=== PATIENT | male | born 1985 | race Caucasian/White ===

== ENCOUNTER 2021-05-09 08:15 | Emergency (ER) | payer MEDICAID ==
[~2021-05-09] VITALS: Ht 168.9 cm; Wt 75.0 kg
[2021-05-09 08:25] VITALS: BP 137/87
--- NOTE | 2021-05-09 08:35 | NUR ---
PT AMB TO BED 4.
--- NOTE | 2021-05-09 08:51 | NUR ---
DR. ARANA AT PT BEDSIDE FOR FURTHER EVALUATION.
[2021-05-09] MEDS ORDERED: FAMOTIDINE 20 MG TAB PO ONE (08:55)
[2021-05-09] MEDS ORDERED: ALUMINUM HYD/MAG/SIMETHICONE 30 ML UDC PO ONE (08:55)
--- NOTE | 2021-05-09 08:59 | NUR ---
35 Y/O MALE C/O ABDOMINAL PAIN 10/15 DESCRIBES ACHING CONSTANT RADIATES TO RUQ ABDOMINAL PAIN X 1DAY. DENIES N/V. DENIES FEVER/CHILLS. ABD IS SOFT, FOUND, NON-TENDER TO PALPATION, BOWEL SOUNDS ACTIVE X4. LAST BM YESTERDAY. PMH: [employer]
[2021-05-09] MEDS ORDERED: FAMO-92 PO (09:09)
[2021-05-09 10:05] VITALS: BP 122/81
--- NOTE | 2021-05-09 10:05 | NUR ---
Patient discharged with v/s stable. Written and verbal after care instructions given FOR ABDOMINAL PAIN, GERD and explained. Patient alert, oriented and verbalized understanding of instructions. Ambulatory with steady gait. All questions addressed prior to discharge. ID band removed. Patient advised to follow up with PMD. Rx of PEPCID given. Patient educated on indication of medication including possible reaction and side effects. Opportunity to ask questions provided and answered.
== END 2021-05-09 10:05 | disposition home or self-care (01) ==
LOC: MED 08:15
DX: K21.9 Gastro-esophageal reflux disease without esophagitis (principal)
CPT/HCPCS: 81002; 99283

== ENCOUNTER 2021-05-20 22:38 | Emergency (ER) | payer MEDICAID ==
[~2021-05-20] VITALS: Ht 165.6 cm; Wt 73.5 kg
[~2021-05-20 22:38] MED LIST: FAMO-92 PO
[2021-05-20 22:49] VITALS: BP 123/76
--- NOTE | 2021-05-20 22:54 | NUR ---
pt taken to bed 02.
[2021-05-21] MEDS ORDERED: DICYCLOMINE HCL LIQUID 20 MG, ALUMINUM HYD/MAG/SIMETHICONE 30 ML, LIDOCAINE VISCOUS 2% ... PO ONE ×3
[2021-05-21] MEDS ORDERED: ALUMINUM HYD/MAG/SIMETHICONE 30 ML UDC ONE (00:12)
[2021-05-21] MEDS ORDERED: DICYCLOMINE HCL LIQUID 10 MG/5 ML UDC ONE (00:12)
[2021-05-21 00:35] LABS: BASOPHILS % (AUTO) 0.3 % (0.0-2.0); EOSINOPHILS # (AUTO) 0.1 K/uL (0-0.4); EOSINOPHILS % (AUTO) 0.6 % (0.0-4.0); HEMATOCRIT 47.6 % (36-52); HEMOGLOBIN 16.2 g/dL (12.0-18.0); LYMPHOCYTES # (AUTO) 1.2 K/uL (2.0-11.5); LYMPHOCYTES % (AUTO) 9.4 % (20.5-51.1); MEAN CORPUSCULAR HEMOGLOBIN 30 pg (27-31); MEAN CORPUSCULAR HGB CONC 34 g/dL (33-37); MEAN CORPUSCULAR VOLUME 88.5 fL (80-94); MONOCYTES # (AUTO) 0.6 K/uL (0.8-1.0); MONOCYTES % (AUTO) 4.7 % (1.7-9.3); NEUTROPHILS # (AUTO) 11.2 K/uL (1.8-7.7); PLATELET COUNT (AUTO) 273 K/uL (140-450); RED BLOOD CELL COUNT(AUTO) 5.37 MIL/uL (4.20-6.10); RED CELL DISTRIBUTION WIDTH 14.1 % (11.6-13.7); WHITE BLOOD COUNT (AUTO) 13.2 K/uL (4.8-10.8)
[2021-05-21 01:04] LABS: ANION GAP 15.4 (8-16); CARBON DIOXIDE 27.2 mmol/L (21-32); CREATININE 0.9 mg/dL (0.6-1.3); POTASSIUM 3.6 mmol/L (3.5-5.1); TOTAL BILIRUBIN 0.3 mg/dL (0.0-1.0)
[2021-05-21] MEDS ORDERED: SUCR1TAB35 PO (01:43)
[2021-05-21] MEDS ORDERED: DOCU-2 PO (01:43)
[2021-05-21 01:44] VITALS: BP 132/72
--- NOTE | 2021-05-21 01:47 | NUR ---
PATIENT DC HOME FEELING WELL VITALS SIGNS IN NORMAL LIMITS ALL DC INSTRUCTION WAS GAVE ALONG WITH ELECTRONIC PRESCRIPTION WE RECOMEND TO FOLLOW UP WITH PCP //Nancy RN
== END 2021-05-21 01:50 | disposition home or self-care (01) ==
LOC: MED 22:38
DX: R10.11 Right upper quadrant pain (principal); Z79.899 Other long term (current) drug therapy
CPT/HCPCS: 36415; 80053; 83690; 85025; 99283